=== PATIENT | male | born 1940 | race Caucasian/White ===

== ENCOUNTER → 2020-09-03 | Outpatient (CLI) | payer OTHER ==
[~2020-09-03] MED LIST: ACETAMINOPHEN325 MG PO; COLACE 100MG C100 MG PO; DONEPEZIL HCL10 MG PO; FAMOTIDINE20 MG PO; FLOMAX 0.4 MG0.4 MG PO; LEVOTHYROXINE25 MCG PO; LORTAB 5-325 M1 EACH PO; LYRICA100 MG PO; LYRICA25 MG PO; NAC600 MG PO; NORVASC5 MG PO; PHOSLO 667 MG667 MG PO; PRAVASTATIN SOD40 MG PO; TRADJENTA5 MG PO
== END ==
LOC: RAD 14:05
DX: M86.8X7 Other osteomyelitis, ankle and foot (principal)
CPT/HCPCS: 73630

== ENCOUNTER 2020-09-04 12:21 | Inpatient (IN) | payer MEDICARE ==
[~2020-09-04] VITALS: Ht 180.3 cm; Wt 88.9 kg
[~2020-09-04 12:21] MED LIST changes: -LYRICA25 MG PO; -NAC600 MG PO; -PHOSLO 667 MG667 MG PO
[2020-09-04 13:28] LABS: HEMOGLOBIN 12.4 gm/dl (14.0-17.5); RED BLOOD COUNT 4.54 M/UL (4.20-5.50); WHITE BLOOD COUNT 7.6 K/UL (4.5-11.0)
[2020-09-04] MEDS ORDERED: LYRICA25 MG PO (16:32)
[2020-09-04] MEDS ORDERED: PHOSLO 667 MG667 MG PO (16:32)
[2020-09-05 02:29] LABS: HEMOGLOBIN 11.4 gm/dl (14.0-17.5); RED BLOOD COUNT 4.15 M/UL (4.20-5.50); WHITE BLOOD COUNT 6.4 K/UL (4.5-11.0)
[2020-09-06 04:09] LABS: HEMOGLOBIN 12.8 gm/dl (14.0-17.5)
[2020-09-06 04:12] LABS: RED BLOOD COUNT 4.68 M/UL (4.20-5.50); WHITE BLOOD COUNT 8.4 K/UL (4.5-11.0)
[2020-09-07] MEDS ORDERED: NAC600 MG PO (09:39)
== END 2020-09-07 13:49 | disposition short-term general hospital (02) | DRG 300 ==
LOC: ER1 12:21 → MED SURG 4 15:46 → CDU 15:46 → MED SURG 4 19:28
PROVIDERS: Internal Medicine Nephrology; Physician Assistant; ADMIT Family Medicine
DX: E11.51 Type 2 diabetes mellitus with diabetic peripheral angiopathy without gangrene (principal); M86.8X6 Other osteomyelitis, lower leg; N17.9 Acute kidney failure, unspecified; I70.202 Unspecified atherosclerosis of native arteries of extremities, left leg; E11.69 Type 2 diabetes mellitus with other specified complication; N18.30 Chronic kidney disease, stage 3 unspecified; I12.9 Hypertensive chronic kidney disease with stage 1 through stage 4 chronic kidney disease, or unspecified chronic kidney disease; F03.90 Unspecified dementia, unspecified severity, without behavioral disturbance, psychotic disturbance, mood disturbance, and anxiety; E03.9 Hypothyroidism, unspecified; N40.0 Benign prostatic hyperplasia without lower urinary tract symptoms; D64.9 Anemia, unspecified; I35.8 Other nonrheumatic aortic valve disorders; Z20.822 Contact with and (suspected) exposure to COVID-19; Z90.49 Acquired absence of other specified parts of digestive tract; Z98.41 Cataract extraction status, right eye; Z79.899 Other long term (current) drug therapy; Z83.3 Family history of diabetes mellitus; Z80.9 Family history of malignant neoplasm, unspecified; Z98.890 Other specified postprocedural states
CPT/HCPCS: ECHO; 36415; 73630; 73721; 80048; 80053; 80202; 81001; 82962; 83605; 85025; 85652; 86140; 87040; 87070; 87205; 93005; 93306; 93926; 96365; 96366; 96368; 96372; 96375; 99284; J0692; J1644; J2543; J3370; J7030; J7070; J7120; U0002